=== PATIENT | male | born 1980 | race Caucasian/White ===

== ENCOUNTER 2017-11-22 11:30 | Emergency (ER) | payer OTHER ==
[2017-11-22 12:46] VITALS: BP 111/62
--- NOTE | 2017-11-22 13:22 | UC ---
Lower Extremity/Ankle HPI - HPI Summary HPI Summary: missed a step and rolled R ankle and foot on thursday-2 days ago. c/o ongoing pain , swelling and bruising.. pt has continued to work and walk with the injury. - History of Current Complaint Chief Complaint: UCLowerExtremity Stated Complaint: RT ANKLE Time Seen by Provider: 11/22/17 13:01 Hx Obtained From: Patient, Family/Address Change Clerk Onset/Duration: Sudden Onset Pain Intensity: 7 Aggravating Factor(s): Standing, Ambulation Alleviating Factor(s): Rest Able to Bear Weight: Yes - Risk Factors Gout Risk Factors: Negative DVT Risk Factors: Negative Septic Arthritis Risk Factor: Negative - Allergies/Home Medications Allergies/Adverse Reactions: Allergies Allergy/AdvReac Type Severity Reaction Status Date / Time oxycodone Allergy Unknown HIVES AND Verified 11/22/17 12:36 VOMITING. "THROAT FEELS WEIRD" Home Medications: Home Medications Hydrocodone/Acetaminophen [Hydrocodone Bitartrate/AC] 1 tab PO QID PRN 11/22/17 [History Confirmed 11/22/17] Ibuprofen TAB* [Motrin TAB* 800 MG] 800 mg PO Q6H PRN 11/22/17 [History Confirmed 11/22/17] traMADol TAB* [Ultram*] 50 mg PO Q6HR PRN 11/22/17 [History Confirmed 11/22/17] PMH/Surg Hx/FS Hx/Imm Hx - Additional Past Medical History Additional PMH: chronic back pain - Surgical History Surgical History: Yes Surgery Procedure, Year, and Place: RIGHT CARPAL TUNNEL REPAIR. GASTROSCOPE. COLONOSCOPY - Family History Known Family History: Positive: Other - PROSTATE CA - Social History Occupation: Employed Full-time Lives: With Family Alcohol Use: Occasionally Substance Use Type: Marijuana Smoking Status (MU): Heavy Every Day Tobacco Smoker Type: Cigarettes Amount Used/How Often: 1 PPD Household Exposure Type: Cigarettes - Immunization History Vaccination Up to Date: Yes Review of Systems Constitutional: Negative Skin: Negative Eyes: Negative ENT: Negative Respiratory: Negative Cardiovascular: Negative Gastrointestinal: Negative Genitourinary: Negative Motor: Negative Neurovascular: Negative Musculoskeletal: Other: - pain R ankle foot Neurological: Negative Psychological: Negative Is Patient Immunocompromised?: No All Other Systems Reviewed And Are Negative: Yes Physical Exam Triage Information Reviewed: Yes Appearance: Well-Appearing Vital Signs: Initial Vital Signs Temp 99.3 F 11/22/17 12:40 Pulse 64 11/22/17 12:40 Resp 18 11/22/17 12:40 BP 111/62 11/22/17 12:40 Pulse Ox 99 11/22/17 12:40 Eyes: Positive: Conjunctiva Clear ENT: Positive: Normal ENT inspection Neck: Positive: Supple, Nontender, No Lymphadenopathy Respiratory: Positive: Lungs clear, Normal breath sounds Cardiovascular: Positive: RRR, No Murmur Abdomen Description: Positive: Nontender, No Organomegaly, Soft Bowel Sounds: Positive: Present Musculoskeletal: Positive: Other: - RLE: hip, knee and achilles non tender. R ankle and foot with mild swelling, brusing and generalized tendernss. s/v/m intact to toes. Diagnostics - Radiology No standard instances Radiology Interpretation Completed By: Radiologist - R ankle/foot no fx/ dislocations(see report) Lower Extremity Course/Dx - Course Course Of Treatment: pain medication declined. no fx/dislocation. will alvaro and splint - Differential Dx/Diagnosis Provider Diagnoses: Sprain R ankle and R foot Discharge - Sign-Out/Discharge Documenting (check all that apply): Discharge/Admit/Transfer - Discharge Plan Condition: Stable Disposition: HOME Patient Education Materials: Ankle Sprain (DC), Foot Sprain (ED) Referrals: Wade Diaz NP [Primary Care Provider] - If Needed Ted Escobedo MD [Medical Doctor] - As Soon As Possible Additional Instructions: WEAR SPLINT UNTIL CLEARED - Billing Disposition and Condition Condition: STABLE Disposition: HOME
--- NOTE | 2017-11-22 13:51 | RAD ---
HISTORY: Right ankle, foot pain, fall COMPARISONS: None VIEWS: 6, Frontal, lateral, and oblique views of the right foot and right ankle FINDINGS: BONE DENSITY: Normal. BONES: There is no displaced fracture. JOINTS: There is no arthropathy. ALIGNMENT: There is no dislocation. SOFT TISSUES: Unremarkable. OTHER FINDINGS: None. IMPRESSION: NO ACUTE OSSEOUS INJURY TO THE RIGHT FOOT OR RIGHT ANKLE. IF SYMPTOMS PERSIST, RECOMMEND REPEAT IMAGING.
== END 2017-11-22 14:29 | disposition home or self-care (01) ==
LOC: UCCORT 11:30
DX: S93.401A Sprain of unspecified ligament of right ankle, initial encounter (principal); S96.911A Strain of unspecified muscle and tendon at ankle and foot level, right foot, initial encounter; W10.9XXA Fall (on) (from) unspecified stairs and steps, initial encounter; Y93.9 Activity, unspecified; Y92.9 Unspecified place or not applicable; G89.29 Other chronic pain; Z88.5 Allergy status to narcotic agent; M54.9 Dorsalgia, unspecified; F17.210 Nicotine dependence, cigarettes, uncomplicated
CPT/HCPCS: 99212; G0463